=== PATIENT | male | born 1970 | race Two or more races ===

== ENCOUNTER 2017-06-14 19:15 | Emergency (ER) | payer OTHER ==
[~2017-06-14] VITALS: Ht 172.7 cm; Wt 108.9 kg
[~2017-06-14 19:15] MED LIST: CIPRO500 MG PO; LEVSIN/SL0.125 MG SL; PEPCID40 MG PO; ZESTRIL20 MG
== END 2017-06-14 22:54 | disposition home or self-care (01) ==
LOC: ER 19:15
DX: J11.1 Influenza due to unidentified influenza virus with other respiratory manifestations (principal)